=== PATIENT | male | born 1980 | race Caucasian/White ===

== ENCOUNTER → 2022-08-13 | Outpatient (CLI) | payer BC ==
[~2022-08-13] MED LIST: FLUC100T6 PO; HOLD METFORMIN - RECEIVED CONTRAST 20 ML VIAL IV SCH; HYDR-3714 PO; HYDR1TAB66 PO; IOHEXOL 350 MG/ML 100 ML (OMNIPAQUE 350) VIAL IV ONE; LEVO750T24 PO; NAPR-689 PO; NS 100 ML (IVPB) BAG IV ONE; OMEP40CA36 PO; OXYC-12 PO; OXYC-199 PO; PRM25T PO; SCR1T1 PO
--- NOTE | 2022-08-13 11:22 | Diagnostic Imaging Report ---
PROCEDURE: CT abdomen and pelvis with contrast. TECHNIQUE: Multiple contiguous axial images were obtained through the abdomen and pelvis after administration of intravenous contrast. Auto Exposure Controls were utilized during the CT exam to meet ALARA standards for radiation dose reduction. All CT scans use one or more of the following dose optimizing techniques: automated exposure control, MA and/or KvP adjustment based on patient size and exam type or iterative reconstruction. INDICATION: Left abdominal pain No focal hepatic, gallbladder, pancreatic, adrenal gland or splenic abnormality is seen. The kidneys are also unremarkable. There is no hydronephrosis and no obstructive uropathy is present. There is no evidence of bowel obstruction. No free fluid is seen in the abdomen or pelvis. No pathologically enlarged adenopathy is seen. There is a small fat-containing umbilical hernia. No bowel hernia is seen. Unopacified urinary bladder is largely decompressed but otherwise unremarkable. IMPRESSION: No evidence of acute abnormality or adverse change. Dictated by: Dictated on workstation # [id number]
== END ==
LOC: RAD 10:26
PROVIDERS: ATTEND Nurse Practitioner Family
DX: R10.9 Unspecified abdominal pain (principal)
CPT/HCPCS: 74177

== ENCOUNTER 2023-03-04 17:55 | Emergency (ER) | payer BC ==
[~2023-03-04 17:55] MED LIST changes: -HOLD METFORMIN - RECEIVED CONTRAST 20 ML VIAL IV SCH; -IOHEXOL 350 MG/ML 100 ML (OMNIPAQUE 350) VIAL IV ONE; -NS 100 ML (IVPB) BAG IV ONE
[2023-03-04] MEDS ORDERED: TETRACAINE 0.5% OPHTH SOLN 4 ML BTL (SINGLE DOSE ONLY) ONE (18:35)
--- NOTE | 2023-03-04 18:39 | ED EENT ---
History of Present Illness General Chief Complaint: Eye Problems Stated Complaint: RT EYE PAIN/INJURY Nursing Triage Note: PT CO OF R EYE HAD INJURY APPROX 30 MIN AGO, THUMB TO R EYE, HAS PAIN AND BLURRED VISION Source: patient Exam Limitations: no limitations (MANPREET BAR) History of Present Illness Date Seen by Provider: Mar 04, 2023 Time Seen by Provider: 18:37 Initial Comments Patient is a 42-year-old male who presents ED with injury to his right eye. This occurred 1 hour ago. Patient states he was taking one of his kids to his room. States the kids finger went up and hit his right upper eye. Patient had immediate pain. Ports cloudy blurry vision. Noted some area of bleeding above the lens. Patient denies wearing contacts. Up-to-date on his tetanus. Denies of visual loss, vomiting, headache. Denies using any topical ointment or eyedrops. Denies fever chills nausea vomiting, diarrhea, chest pain shortness of breath. (MANPREET BAR) Allergies and Home Medications Allergies Coded Allergies: No Known Drug Allergies (Unverified , 10/19/13) Patient Home Medication List Home Medication List Reviewed: Yes (MANPREET BAR) Fluconazole (Fluconazole) 100 Mg Tablet, 100 MG PO DAILY Prescribed by: LIANA MEYER on 12/21/141846 Hydrocodone Bit/Acetaminophen (Anexsia 5-325 Mg Tablet) 1 Each Tablet, 1 EACH PO Q6HR PRN, (Reported) Entered as Reported by: AMANDA HAIDER on 12/21/14 164 Levofloxacin (Levofloxacin) 750 Mg Tablet, 750 MG PO DAILY, (Reported) Entered as Reported by: AMANDA HAIDER on 12/21/14 1642 Review of Systems Review of Systems Constitutional: No chills, No diaphoresis, No malaise, No weakness Eyes: Denies Blurred Vision, Denies Drainage, Denies Decreased Acuity; Other (Blurry vision, eye pain) Ears: Denies Dizziness, Denies Pain Nose: denies clots, denies congestion Mouth: denies clots, denies loose teeth Throat: denies pain, denies swelling, denies discharge Respiratory: No cough, No dyspnea on exertion Cardiovascular: No chest pain Gastrointestinal: No abdominal pain, No diarrhea, No nausea, No vomiting Musculoskeletal: No back pain, No joint pain (MANPREET BAR) All Other Systems Reviewed Negative Unless Noted: Yes (MANPREET BAR) Past Gymqwjz-Lcmphk-Btwbin Hx Patient Social History Tobacco Use?: No Substance use?: No Alcohol Use?: No Pt feels they are or have been: No (MANPREET BAR) Immunizations Up To Date Tetanus Booster (TDap): Unknown PED Vaccines UTD: No Influenza Vaccine Up-to-Date: No; Not Current First/Initial COVID19 Vaccinat: YES Second COVID19 Vaccination J Luis: YES (MANPREET BAR) Past Medical History Surgery/Hospitalization HX: HIATAL HERNIA Abdominal Reproductive Disorders: No Sexually Transmitted Disease: No HIV/AIDS: No Gastroesophageal Reflux Adverse Reaction/Blood Tranf: No (MANPREET BAR) Family Medical History No Family History of: Cancer Family history: Gastrointestinal disease Seizure disorder No Pertinent Family Hx (MANPREET BAR) Physical Exam Vital Signs Vital Signs - First Documented 03/04/23 18:23 Temp 36.8 Pulse 91 Resp 18 B/P (MAP) 133/73 (93) Pulse Ox 98 (CARMINE,SHELTON K DO) Height, Weight, BMI Height: 5'10.00" Weight: 170lbs. oz. 77.478736lf; BMI Method:Stated General Appearance: WD/WN, no apparent distress Eyes: right eye other (Subconjunctival hemorrhage upper eyeball. Pupils react to light. Extract MAUCH movements intact. Negative Jannette sign. Negative for hyphema. No obvious abrasion. No foreign body) Ears: bilateral ear auricle normal, bilateral ear canal normal, bilateral ear TM normal Nose: normal inspection, active bleeding Mouth/Throat: normal mouth inspection, pharynx normal Neck: non-tender, full range of motion, supple Cardiovascular: regular rate, rhythm, no edema, no gallop, no JVD Respiratory: chest non-tender, lungs clear, normal breath sounds Gastrointestinal: normal bowel sounds, non tender, soft Neurologic/Psychiatric: floorman II-XII nml as tested, no motor/sensory deficits, alert, normal mood/affect, oriented x 3 Skin: normal color, warm/dry (MANPREET BAR) Progress/Results/Core Measures Results/Orders My Orders Orders - SHELTON LOU DO Tetracaine 0.5% Ophth Haley Sdv (Tetracai (03/04/23 18:35) (SHELTON LOU DO) Medications Given in ED Current Medications Medications Dose Ordered Sig/Prakash Route Start Time Stop Time Status Last Admin Dose Admin Diphtheria/ Tetanus/Acell Pertussis 0.5 ml ONCE ONCE IM 03/04/23 18:45 03/04/23 18:46 DC 03/04/23 19:23 0.5 ML Fluorescein Sodium ONCE ONCE OP 03/04/23 18:45 03/04/23 18:46 DC 03/04/23 19:19 1 MG Tetracaine HCl 4 ml STK-MED ONCE .ROUTE 03/04/23 18:35 03/04/23 18:38 DC 03/04/23 19:18 4 ML (SHELTON LOU DO) Vital Signs/I&O 03/04/23 03/04/23 18:23 19:30 Temp 36.8 Pulse 91 Resp 18 B/P (MAP) 133/73 (93) 133/91 Pulse Ox 98 (SHELTON LOU DO) Blood Pressure Mean: 93 Departure Communication (PCP) Patient is a 42-year-old male who presents to ED with a right eye injury. This occurred about an hour before arrival. Reports some mild foggy blurry vision. Denies of any flashing lights or floaters. Does not wear contacts but does wear reading glasses. Patient is not up-to-date on his tetanus. Eye exam was performed. Visual acuity did show 20/40 right eye, left eye 20/15, both eyes 20/25. Exam did not show any evidence of corneal abrasion. No hyphema. Pupils reactive light. Extract movements intact. Does have a large subconjunctival hemorrhage to the upper eye. No obvious abrasion noted on exam. Pressures noted in the right eye average 28. Highest of 30. Slight change from the left. Patient was discussed with Dr. Kemp optometry. Not concern for the pressure of 28-30. Recommended no eyedrops at this time and to follow-up in the office tomorrow. Provided information to Dr. Kemp. Did recommend artificial tears. If any change in vision to strongly recommend return back to ED. He did state after the tetracaine symptoms did improve significantly. No evidence suggesting globe rupture. Not concern for retinal detachment. However needs close follow-up within a 24 hours as things can change. They agreed with this plan of action (MANPREET BAR) Impression Primary Impression: Subconjunctival hemorrhage Disposition: 01 HOME, SELF-CARE Condition: Stable Departure-Patient Inst. Decision time for Depature: 19:23 (MANPREET BAR) Ref[place]: [facility] [place] Primary Care Physician Patient Instructions: Subconjunctival Hemorrhage Add. Discharge Instructions: Recommend following up with [facility] Number is [id number]. At this time recommended artificial eyedrops All discharge instructions reviewed with patient and/or family. Voiced understanding. ATTENDING PHYSICIAN NOTE: I WAS PHYSICALLY PRESENT ER PHYSICIAN, BUT I WAS NOT INVOLVED IN ANY DECISION MAKING OR ANY CARE OF THIS PATIENT, AND I AM NOT COLLABORATING PHYSICIAN. (SHELTON LOU DO) MANPREET BAR Mar 04, 2023 18:39 SHELTON LOU DO Mar 05, 2023 05:23
[2023-03-04] MEDS ORDERED: FLUORESCEIN 1 MG OPHTHALMIC STRIPS OP ONE (18:45)
[2023-03-04] MEDS ORDERED: TETRACAINE 0.5% OPHTH SOLN 5 ML BTL OP ONE (18:45)
[2023-03-04] MEDS ORDERED: Tetanus/Diphtheria/Pertussis (Acell) ADULT Vaccine 0.5 ML IM ONE (18:45)
[2023-03-04 19:30] VITALS: BP 133/91
== END 2023-03-04 19:30 | disposition home or self-care (01) ==
LOC: EDUNIT# 17:55 → ER 17:59
DX: H11.31 Conjunctival hemorrhage, right eye (principal); Z23 Encounter for immunization
CPT/HCPCS: 90715; 99282